=== PATIENT | male | born 1950 | race Caucasian/White ===

== ENCOUNTER 2017-02-06 20:55 | Inpatient (IN) | payer MEDICARE ==
[~2017-02-06] VITALS: Ht 162.6 cm; Wt 99.1 kg
--- NOTE | ~2017-02-06 | ECH ---
Transthoracic Echocardiography Report (TTE) Demographics Patient Name SHERLEY BARR Date of Study 02/07/2017 Patient Number [id number] Visit Number [id number] Date of 1950 Room Number 427 Gender Male Number Age 66 year(s) Referring Britta Barreto Director Workers Compensation Ana Saba [facility] Physician Physician Interpreting Yanet Moore [employer] Physician MD Supervising Ordering Yanet Moore MD/MLP Physician Nurse Stress Promotions Director Conclusions Summary Technically adequate exam. Normal LV/RV size and systolic function. The estimated left ventricular ejection fraction is 55-60%. Diastolic assessment reveals Grade I diastolic dysfunction. No significant valvular abnormalities. Procedure Type of Study TTE procedure:Echo Complete SF. Procedure Date Date: 02/07/2017 Start: 02:11 PM Technical Quality: Adequate visualization Indications:Atypical Chest Pain, Diabetes, Coronary artery disease and Elevated Troponin. Additional Indications:NSTEMI Appropriate Use Criteria: 9 Height: 64 inches Weight: 218 pounds BSA: 2.03 m Rhythm: Irregular HR: 60 bpm BP: 135/73 mmHg Allergies - No known allergies. M-Mode/2D Measurements LV Diastolic Dimension: 5.29 cm LV Systolic Dimension: 3.89 cm LV Septum Diastolic: 1.04 cm LV PW Diastolic: 0.81 cm AO Root Dimension: 2.98 cm Cardiac Output: 2.98 l/min LA Dimension: 4.05 cm Cardiac Index: 1.47 l/min*m RV Diastolic Dimension: 3.72 cm LA volume index: 29 ml/m LVOT: 1.98 cm LVOT VTI: 16.12 cm RV Base: 3.4 cm LV Stroke volume: 49.61 ml RV Mid: 2.5 cm LV Stroke volume index: 24.44 ml/m TAPSE: 2.5 cm TDI-S': 13 cm/s Doppler Measurements AV Peak Velocity: 1.8 m/s MV Peak E-Wave: 0.54 m/s AV Peak Gradient: 12.96 mmHg MV Peak A-Wave: 0.72 m/s AV Mean Gradient: 7.15 mmHg MV E/A Ratio: 0.75 LVOT Peak Velocity: 0.88 m/s MV P1/2t: 72.1 msec AV Area (Continuity):1.32 cm MV Deceleration Time: 215.5 msec MV Area (PHT): 3.05 cm PV Peak Velocity: 0.96 m/s E' Septal Velocity: 0.07 m/s PV Peak Gradient: 3.67 mmHg E' Lateral Velocity: 0.09 m/s A' Septal Velocity: 0.1 m/s A' Lateral Velocity: 0.13 m/s RA Area: 10.82 cm Findings Left Ventricle Normal left ventricle size and function. Diastolic assessment reveals Grade I diastolic dysfunction. Right Ventricle Normal right ventricle structure and function. Left Atrium Normal left atrial size. Right Atrium Normal right atrial size. IVC is not well visualized. Mitral Valve Normal mitral valve structure and function. Trivial mitral regurgitation by color Doppler. Aortic Valve The aortic valve is moderately sclerotic. No AI. Tricuspid Valve Normal tricuspid valve structure and function. Trivial tricuspid regurgitation by color Doppler. Insufficient jet to calculate pulmonary pressures. Pulmonic Valve Normal pulmonic valve structure and function. Pericardial Effusion No evidence of pericardial effusion. Miscellaneous Visualized portions of the aortic root and ascending aorta appear normal in size. Pleural Effusion No evidence of pleural effusion. Signature
--- NOTE | ~2017-02-06 | CATH ---
Cardiac Diagnostic Report Demographics Patient Name MOMO LEPE Gender Male L Date of 1950 Age 66 year(s) Patient Number [id number] Date of Study 02/07/2017 Visit Number [id number] Room Number 427 Corporate ID Ht 162.56 cm Wt 98.88 kg Accession Number [id number] BSA 2.03 m kg/m Referring Britta Silva Primary Physician Physician Mary Lou MAK Performing [facility] Secondary Physician Physician Teresa MAK Diagnostic [facility] Assisting Physician Physician Teresa MAK Interventional [facility] Physician Continuity Person Physician Teresa MAK Findings and Conclusions Diagnostic Findings and Conclusion 1. Severe 3 vessel obstructive CAD, Diffusely diseased dominant RCA with robust collaterals from left system filling distal vessel, mid LAD 80%, prox LAD 60%, and mid Cx 80% of large OM branch. 2. Patient admitted with NSTEMI/with ST depressions in leads 1, aVL. Diagnostic Recommendations 1. Transfer to [facility] for CABG, discussed with Dr. Claudio. 2. Continue therapy for NSTEMI while awaiting transfer. 3. Continue heparin drip per ACS protocol, asa, bb, statin. 4. 2D echocardiogram and carotids prior to CABG. Procedure Description The patient was brought to the diagnostic cardiac catheterization laboratory in the fasting, non-sedated state. Informed consent was obtained in the written and verbal form after the risks and benefits were explained. The patient had no further questions and agreed to proceed. The planned puncture-incision site(s) were shaved and prepped with ChloraPrep and draped in the usual sterile manner. Conscious sedation, supplemental oxygen, and pain control medications were delivered by a registered nurse under physician guidance. Surface ECG rhythm, blood pressure measurement, and pulse oximetry were monitored throughout the procedure. Arterial access. The right radial access site was infiltrated with lidocaine. The vessel was entered with the Seldinger technique. A 6F sheath was advanced into the vessel and used for catheter placement. Radial cocktail administered per protocol. Selective right coronary angiography. A FR4 catheter was advanced into the right coronary vessel ostium under fluoroscopic guidance. Contrast was injected by hand. Images were obtained in multiple projections. Selective left coronary angiography. A FL3.5 catheter was advanced into the left coronary vessel ostium under Fluoroscopic guidance. Contrast was injected by hand. Images were obtained in multiple projections. Left heart catheterization. A pigtail catheter was advanced across the aortic valve to the left ventricle under fluoroscopic guidance. Resting hemodynamics were obtained. Arterial artery hemostasis was achieved with a TR band. The patient was transferred to a regular nursing floor via cart accompanied by a nurse. The patient left the laboratory in stable condition. Diagnostic Cath Status: Urgent Procedure Procedure Type Diagnostic procedure:Angiography:, Coronary Angios /[facility] Indications: NSTEMI and Obesity. The procedure was explained in detail to the patient. Risks, complications and alternative treatments were reviewed. Written consent was obtained. Medications Reviewed with Patient prior to Procedure. Complications: No Complication. Angiographic Findings Dominance: Right Cardiac Arteries and Lesion Findings LMCA: Normal (0% Stenosis). LAD: Abnormal. Lesion on Mid LAD: 80% stenosis . Lesion on Prox LAD: 60% stenosis . Lesion on Dist LAD: 50% stenosis . LCx: Abnormal. Lesion on Mid CX: 80% stenosis . Lesion on 1st Ob Erika% stenosis . RCA: Abnormal.Collaterals to RCA from LAD Lesion on Prox RCA: 90% stenosis .The lesion was diffuse. Lesion on Dist RCA: 95% stenosis . Coronary Tree Procedure Data Procedure Date Date: 02/07/2017Start: 11:23 AMEnd: 12:15 PM Entry Locations - Percutaneous access was performed through the Right Radial artery (Primary location). A 6 Fr sheath was inserted. Hemostasis was successfully obtained using a TR band. Procedure Medications Order and Administration + + +---------+-------+ !Time !Medication !Dosage !Route ! + + +---------+-------+ !02/07/2017 11:26 AM !Versed !2 mg !I.V. ! + + +---------+-------+ !02/07/2017 11:26 AM !Fentanyl !25 mcg !I.V. ! + + +---------+-------+ !02/07/2017 11:26 AM !Sodium Chloride !10 ml !I.V. ! + + +---------+-------+ !02/07/2017 11:34 AM !Versed !1 mg !I.V. ! + + +---------+-------+ !02/07/2017 11:34 AM !Fentanyl !25 mcg !I.V. ! + + +---------+-------+ !02/07/2017 11:46 AM !Versed !1 mg !I.V. ! + + +---------+-------+ !02/07/2017 11:46 AM !Fentanyl !50 mcg !I.V. ! + + +---------+-------+ !02/07/2017 11:50 AM !Oxygen !4 l/min !NC ! + + +---------+-------+ Devices Used - ACATH 6F FR4 CATHETER 100CMwas used for:Right coronary angiography. - ACATH 6FR FL3.5 CATHETER 100CMwas used for:Left coronary angiography. - ACATH 6FR PIG 145 110CM CATHETERwas used for:LV Pressures. Contrast Material - Isovue 21388 ml Fluoroscopy Time: Diagnostic: 3:06 minutes. Total: 3:06 minutes. Fluoroscopy Dose: Diagnostic: 704 mGy. Total: 704 mGy. Estimated Blood Loss: 8 ml. Medical History Allergies - No known allergies. Risk Factors The patient risk factors include:obesity, Newly diagnoseddiabetes mellitus, last creatinine: 1.1 mg/dl, creatinine clearance: 92.39 ml/min and dyslipidemia. Admission Data Admission Date: 02/06/2017 Admission Time: 11:15 PM Insurance Payors: Medicare. Clinical Evaluation Leading to Procedure - The patient's CAD presentation was assessed as: Non-STEMI. - The patient's anginal syndrome during the past two weeks was assessed as: Class IV according to the Hand Cardiovascular Society Classification System (CCS). Anti-anginal medications were prescribed during the past two weeks. The medication is: Beta Blockers. - The patient has been in a state of heart failure within the past two weeks. - The patient's heart failure status was assessed as NYHA Class II, with CHF symptoms of DEL CIDConcepcion Evans Hemodynamics Condition: Rest O2 Consumption: Estimated: 237.66Heart Rate: 72 bpm Pressures (mmHg) +-----+ + !Site !Pressure ! +-----+ + !AO !102/60 (79) ! +-----+ + !LV !125/2 ,9 ! +-----+ + !AO !107/53 (84) ! +-----+ + !LV !125/4 ,7 ! +-----+ + Valve Gradients and Areas + +---------+---------+---------+ +---------+ + !Valve !Peak !Mean !Area !Index !Flow !Source ! + +---------+---------+---------+ +---------+ + !Aortic !18 !15 ! ! ! ! ! + +---------+---------+---------+ +---------+ + !Aortic !18 !15 ! ! ! ! ! + +---------+---------+---------+ +---------+ + Shunts Oxygen Values O2 Consumption 237.66 Signatures
--- NOTE | 2017-02-07 19:14 | ER ---
ADMIT: 02/06/2017 RM/LOC: 427 [facility] MR#: [id number] [address] [facility] [address] [place], [place] [address] SHERLEY BARR [address] [place] [address] Emergency Room Report SEX: M AGE: 66 : 1950 DATE: 02/06/2017 HISTORY OF PRESENT ILLNESS: The patient is a 66-year-old male with a past medical history prediabetic, who came to the ER with chief complaint of 1 day of upper mid chest and base of the neck pain, which radiates to the back and is exertional and happens while the patient walks or do some exertion. The patient states pain was moderate in severity and was more sharp and sometimes pressure like. The patient denies any shortness of breath. PHYSICAL EXAMINATION: GENERAL: The patient was in mild distress. VITAL SIGNS: Stable. The patient was mildly tachycardic to 105 to 107. Blood pressure systolic was 128 and diastolic was 79. O2 saturation was 93 to 95 on room air. The patient received GI cocktail, per the patient, GI cocktail significantly decreased the pain. The patient also received nitroglycerin sublingual, knowing the patient had no usage of erectile dysfunction medications in the last week. Per the patient, sublingual nitroglycerin did not change the pain that much. EKG did not show any ST or T changes or Q-waves. Chest x-ray was questionable for mediastinal widening especially on the right side at the level of T4 close to 9 cm. Troponin was elevated to 0.079. Glucose was 394, and D-dimer was also elevated to 1.56. The patient received another dose of sublingual nitroglycerin as a blood pressure systolic went 170s, which decreased the systolic blood pressure to 129, the patient later on was put on nitroglycerin paste. The patient already got aspirin, and CT angiogram of the chest, dissection protocol was negative for dissection or pulmonary emboli. Family Medicine was consulted, and the patient was admitted for chest pain, rule out acute coronary syndrome/non-STEMI. Buddy Cohen MD/ angel JOB #: [id number] CC: Ricardo Callejas MD, Attending Physician Ricardo Callejas MD, Family Physician
--- NOTE | 2017-02-19 13:06 | DS ---
ADMIT: 02/06/2017 RM/LOC: 427 [facility] MR#: [id number] [id number] [place], [place] [address] SHERLEY BARR [address] [place] [address] General Discharge Summary SEX: M AGE: 66 : 1950 ADMISSION DATE: 02/06/2017 DISCHARGE DATE: 02/09/2017 ADMISSION DIAGNOSIS: Chest pain. DISCHARGE DIAGNOSIS: Acute coronary syndrome. SECONDARY DIAGNOSES: 1. Three-vessel obstructive coronary artery disease. 2. Type 2 diabetes mellitus. 3. Hyperlipidemia. 4. Obesity. 5. Factor V Leiden, heterozygous carrier. CONSULTATIONS: 1. Cardiology. 2. Hematology. PROCEDURE: Cardiac catheterization on 02/07/2017. HISTORY OF PRESENT ILLNESS: The patient presented to the emergency room after a 12-hour history of chest pain. He reported that the 1st episode happened while lifting a 5-pound box and that the pain was substernal with radiation to bilateral clavicles without any diaphoresis, nausea, or shortness of breath. He continued to have intermittent chest pain throughout the day, especially with walking and then presented to the emergency room after an unrelenting episode after eating a cheeseburger. His pain resolved in the ER with Maalox and nitroglycerin, and he was found to have a troponin of 0.079. On chest x- ray, his aortic arch was noted to be enlarged and so a CTA of the chest was completed which is negative for dissection or for pulmonary emboli. HOSPITAL COURSE: The patient was hemodynamically stable throughout his hospital course without any cardiac arrhythmias. His troponin peaked at 0.415, and he was treated with IV heparin. He had a cardiac catheterization on 02/07/2017 and was found to have severe three-vessel obstructive coronary artery disease. He had 1 episode of recurrent chest pain while inpatient, which resolved with 1 dose of nitroglycerin. Cholesterol was checked while he was inpatient and the total cholesterol of 227, HDL of 42, LDL of 123, and triglycerides of 310. He also had an A1c measured which was 9.7, giving him a new diagnosis of type 2 diabetes. Echocardiogram was completed with a left ventricular ejection fraction of 55%. The patient was maximized on medical therapy with the addition of a beta lucy, JARRED inhibitor, statin, and hypoglycemic agents. Arrangements were made to transfer to [facility] to undergo CABG later that week. Hematology was also consulted during the hospitalization as the patient had a family history of factor V Leiden deficiency and is always suspected that he is heterozygous, but was never tested. This testing was completed to further risk stratify the patient, especially with the major surgery planned for later that week. Results returned after the hospitalization, which was positive for the ADMIT: 02/06/2017 RM/LOC: 427 [facility] MR#: [id number] [address] [address] SHERLEY BARR [address] [place] [address] General Discharge Summary SEX: M AGE: 66 : 1950 heterozygous factor V Leiden as expected. The patient was transferred to [facility] on 02/09/2017. DISCHARGE MEDICATIONS: 1. Amaryl 2 mg p.o. daily. 2. Aspirin 81 mg p.o. daily. 3. Crestor 20 mg p.o. at bedtime. 4. Glucophage 500 mg p.o. b.i.d. 5. Lopressor 25 mg p.o. b.i.d. 6. Zestril 5 mg p.o. daily. 7. Low-dose sliding scale insulin. 8. Heparin drip was continued. FOLLOWUP: The patient is to have a followup appointment with Cardiology in 4 weeks after discharge as well as with his PCP 4 weeks after discharge. He is also to follow up with Hematology and its commands to further diagnose heterozygous factor V Leiden. Dinah Sherwood MD Resident / Ronald Cespedes MD / angel JOB #: [id number] CC: Ricardo Callejas MD, Attending Physician Ricardo Callejas MD, Family Physician
--- NOTE | 2017-02-28 07:52 | CO ---
ADMIT: 02/06/2017 RM/LOC: 427 [facility] MR#: [id number] [address] [address] SHERLEY BARR [address] [place] [address] Consultation SEX: M AGE: 66 : 1950 DATE OF CONSULTATION: 02/07/2017 ATTENDING PHYSICIAN: Ricardo Callejas MD CONSULTING PHYSICIAN: Mio Morin MD REASON FOR CONSULTATION: Family history of factor V Leiden. HISTORY OF PRESENT ILLNESS: The patient is a 66-year-old male who has been admitted to the hospital for chest pain and underwent a cardiac catheterization today, showing severe 3-vessel obstructive coronary artery disease, and therefore, needs transferred to [place] to undergo bypass surgery which is currently planned for 02/09/2017. He is on heparin therapy currently for his fys-MB-pbyutlrup ME. He did have a CT scan of the chest to rule out a pulmonary embolism which was negative. I am being asked to see the patient because he has a family history of factor V Leiden in his daughter, who is heterozygous as well as in a brother and some other family members. There have been blood clots in the family. His daughter was tested simply because his brother was found to have the mutation, and she was going to be going through a . She was managed with preventive anticoagulation which was effective, and she I do not believe has ever had a blood clot. The patient himself has never had a history of venous thrombosis. He has had several surgeries in the past as well, which did not result in postoperative clots. He is interested in having testing performed. He, otherwise, has been feeling well prior to this chest pain admission. He has not suffered weight loss, night sweats, significant fevers, fatigue, bowel changes, or any other systemic complaints of concern. PAST MEDICAL HISTORY: Diabetes, obesity, coronary artery disease. PAST SURGICAL HISTORY: Hip surgery. SOCIAL HISTORY: The patient is . 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 He does stay fairly active. He does have a remote history of smoking. FAMILY HISTORY: His father has had heart disease. He is not aware of any malignancies in the family. He does have factor V Leiden as noted above. ALLERGIES: HIS CHART WAS REVIEWED. MEDICATIONS: His chart was reviewed. REVIEW OF SYSTEMS: See HPI. Otherwise, a complete review of systems was obtained and was negative. PHYSICAL EXAMINATION: VITAL SIGNS: Temperature 97, pulse 64, respirations 15, and blood pressure 135/73. GENERAL: The patient is in no acute distress and provides me good history. ADMIT: 02/06/2017 RM/LOC: 427 [facility] MR#: [id number] [address] [address] SHERLEY BARR [address] [place] [address] Consultation SEX: M AGE: 66 : 1950 He is alert and oriented. HEENT: Mucous membranes are moist. No oral lesions are seen. Extraocular muscles were intact. Pupils are reactive and symmetrical. NECK: Without adenopathy or JVD. HEART: Regular rate and rhythm without murmur. LUNGS: Clear to auscultation bilaterally without any crackles or wheezes. ABDOMEN: Soft, nontender, and nondistended with positive bowel sounds throughout. No organomegaly is appreciated. EXTREMITIES: No edema, rashes, lesions, or adenopathy is seen. LABORATORY DATA: Labs are reviewed. CT scan was reviewed. Echo was reviewed. IMPRESSION: 1. Family history of factor V Leiden. 2. Coronary artery disease, in need of intervention. RECOMMENDATIONS: I talked with the patient and his family at length about his family history of factor V Leiden and the high likelihood that he himself is at least heterozygous for the factor V Leiden mutation. Given his family history and his daughter's mutation status, it is very likely that the patient himself is also heterozygous for the mutation. It is an outside possibility that their daughter obtained the mutation from her mother, but her mother's family history is not suggestive of a clotting disorder. I would probably recommend going ahead and checking his factor V Leiden mutation status, just no more information about his future risk of clotting. I would treat him as if he has a mild clotting disorder. I would imagine his postoperative management after this upcoming surgery would be to covering him with anticoagulation preventatively, and he will also be on several anti-platelet drugs presumably as well. I do not think I would do anything overly aggressive in terms of anticoagulation given that he has had no prior history of thrombosis himself. I will see him back in a few weeks once he has recovered from his surgery, and we have his factor V Leiden results to discuss this further with him and the family. I appreciate this consultation. Mio Morin MD/ angel JOB #: [id number] CC: Ricardo Callejas MD, Attending Physician Ricardo Callejas MD, Family Physician
--- NOTE | 2017-03-03 15:08 | CO ---
ADMIT: 02/06/2017 RM/LOC: 427 [facility] MR#: [id number] [address] [facility] [address] [place], [place] [address] [address] [place] [address] Consultation SEX: M AGE: 66 : 1950 DATE OF CONSULTATION: 02/07/2017 ATTENDING PHYSICIAN: Ricardo Callejas CONSULTING PHYSICIAN: Nic De Paz MD REASON FOR CONSULTATION: Chest pain. HISTORY OF PRESENT ILLNESS: This is a 66-year-old male with newly diagnosed type 2 diabetes mellitus, hyperlipidemia, and obesity, who was admitted with chest pain. The patient reports that yesterday morning, he was lifting a box that was approximately 5 pounds and began experiencing mid upper sternal chest pressure that radiated to the bilateral shoulders and around his neck. He had no associated nausea, vomiting, shortness of breath, or diaphoresis. The pain resolved after resting for several minutes. Throughout the day, the chest pressure would return with any sort of activity, especially with walking, but would resolve with rest. Then, during the evening, he was sitting down eating a cheeseburger and the pain returned and so, he came to the Emergency Department. The pain resolved with Maalox and two doses of nitroglycerin that were given in the emergency room. Initial troponin was 0.079, and his EKG showed a normal sinus rhythm. His vital signs were stable upon arrival. His troponins were then trended throughout the night and peaked to 0.360. His EKG was repeated and significant for slight ST elevation in leads II, III, and aVF, as well as T-wave inversion in leads I, aVL, and V2. The patient reports that he had some slight chest pressure around 6:00 a.m. this morning while resting, but that did resolve on its own. PAST MEDICAL HISTORY: 1. Obesity. 2. Recent diagnosis of type 2 diabetes mellitus with a hemoglobin A1c of 9.7. 3. Hyperlipidemia. 4. Factor V Leiden. PAST SURGICAL HISTORY: 1. Left hip arthroplasty. 2. Cervical fusion approximately 20 years ago. MEDICATIONS: Since being admitted, he was started on: 1. Aspirin 81 mg daily. 2. Lopressor 25 mg p.o. b.i.d. 3. Crestor 20 mg p.o. daily. 4. Metformin 500 mg b.i.d. ALLERGIES: NONE. SOCIAL HISTORY: The patient admits to chewing tobacco use since his early teens up until about 4 years ago. No smoking tobacco use. Denies alcohol or illegal drug use. He does live at home. He also reports that since his hip ADMIT: 02/06/2017 RM/LOC: 427 [facility] MR#: [id number] [address] [id number] [address] [place] [address] Consultation SEX: M AGE: 66 : 1950 replacement four years ago, he had been walking 3-4 miles daily without any chest pain. FAMILY HISTORY: Significant for a dad with an [place] at age 70, also family history of factor V Leiden. REVIEW OF SYSTEMS: A 10-point review of systems was reviewed and negative other than that stated above in the HPI. PHYSICAL EXAMINATION: VITAL SIGNS: Blood pressure 135/73, pulse 64, respirations 15, temp 97.6, saturating 93% on 2 L of O2. GENERAL: He is alert and oriented x3. No acute distress. HEENT: Mucous membranes are moist. Nose, clear. Atraumatic. No jugular venous distention. HEART: Shows regular rate and rhythm. No murmur. Chest pain is not reproducible with palpation. LUNGS: Clear. ABDOMEN: Soft, nontender, nondistended. Positive bowel sounds. EXTREMITIES: No edema. LABORATORY AND X-RAY DATA: Sodium 136, potassium 4.6, creatinine 1.1. Glucose 323. LDH was 264. White count 7.2, hemoglobin 15.4, platelets 209. D-dimer was 1.56. Hemoglobin A1c 9.7. CK initial was 136, then 130, then 134; MB was 2.0 initially, then 2.4, then 2.7. Initial troponin was 0.079 and 0.270, then 0.360. Total cholesterol 227, triglycerides 310, LDL 123, HDL 42. CT of the chest was negative for pulmonary embolism, but did show a 3 cm infrarenal abdominal aortic aneurysm. ASSESSMENT AND PLAN: 1. Non-ST segment elevation myocardial infarction. The patient was started on heparin drip. He is also on a statin and a beta-lucy. We will ADMIT: 02/06/2017 RM/LOC: 427 [facility] MR#: [id number] [address] [id number] [facility] [address] [place] [address] Consultation SEX: M AGE: 66 : 1950 plan to add lisinopril tomorrow as well as aspirin. I will schedule an echo for today. After reviewing the EKG changes as well as the trending of the troponins, it was decided that it would be best to go to the cardiac cath lab manager to evaluate for any blockages. The risks and benefits of having a heart catheterization were discussed with the patient and family, and they agreed to go ahead and go forth with that this morning. 2. Diabetes mellitus type 2. He has been started on metformin by his primary, and we will get a diabetic education consult as well. 3. Hyperlipidemia, to start him on Crestor. 4. Obesity. 5. A 3 cm infrarenal abdominal aortic aneurysm. 6. Factor V Leiden. Steph Stewart DO Resident / Nic De Paz MD / angel JOB #: [id number] CC: Ricardo Callejas, Attending Physician Ricardo Callejas, Family Physician
--- NOTE | 2017-03-23 15:58 | HP ---
ADMIT: 02/06/2017 RM/LOC: 427 [facility] MR#: [id number] [address] [facility] [address] [place], [place] [address] [address] [place] [address] History and Physical SEX: M AGE: 66 : 1950 DATE OF SERVICE: CHIEF COMPLAINT: Chest pain. HISTORY OF PRESENT ILLNESS: The patient presented to the ER after developing chest pain today. He reports the first episode with lifting a light box less than 5 pounds around 10 a.m. this morning. He felt the pain deep to his jugular notch with radiation to bilateral clavicles and the pain resolved immediately with rest. He reports he had a few more episodes throughout the day whenever he tried to do any physical activity, but then eventually presented to the emergency room when it was present without any activity after eating a cheeseburger. He denies ability to elicit the pain with palpation of his chest. He denies ever having the sensation before. He denies any shortness of breath, diaphoresis, or nausea during the episodes. He has known coronary artery disease though has not been seen by a physician in over 4 years. He was a previous tobacco user, who quit 4 years ago. He has no family history of premature heart disease only with the father, who had an MN in his 70s. He denies any recent fevers, chills, or other illnesses. He denies any fluid retention. In the ER, he was found to be hemodynamically stable and said the chest pain nearly resolved with Maalox and then completely resolved after 2 doses of nitroglycerin. Since resolution, the pain has not recurred in the few hours since he has been here. PAST MEDICAL HISTORY: "Pre-diabetes" and obesity. PAST SURGICAL HISTORY: Left hip arthroplasty. FAMILY HISTORY: Father with an MN in his 70s. Mom with valve replacement. SOCIAL HISTORY: The patient is . His is at the bedside. 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 He walks 3 to 4 miles daily and has never had any chest discomfort with that activity. He previously used tobacco, quit 4 years ago. Denies any regular alcohol use, herbs, supplements, or illicit drugs. MEDICATIONS: 1. 81 mg aspirin. 2. Flonase as needed. ALLERGIES: NO KNOWN MEDICAL ALLERGIES. REVIEW OF SYSTEMS: A 10-point review of system was negative except as noted in the HPI. PHYSICAL EXAMINATION: VITAL SIGNS: 70, 132/61, 19, 95%, afebrile. GENERAL: Alert and oriented in no acute distress. The patient appears comfortable. HEENT: Head is normocephalic and atraumatic. Pupils are equal, round, and reactive to light. Extraocular muscles are intact. Sclerae are nonicteric. ADMIT: 02/06/2017 RM/LOC: 427 [facility] MR#: [id number] [address] [place] [id number] [facility] [place] [address] History and Physical SEX: M AGE: 66 : 1950 Mucous membranes are moist. NECK: Supple. Thyroid is nonpalpable. Trachea is midline. No JVD appreciated. HEART: Regular rate and rhythm without murmur, rub, or gallop. LUNGS: Clear to auscultation bilaterally with normal work of breathing on 2 L per nasal cannula. ABDOMEN: Soft, obese, nontender to palpation with bowel sounds present. EXTREMITIES: Without cyanosis, clubbing, or edema. SKIN: Intact without any appreciable ulcers. NEURO: Cranial nerves II through XII are grossly intact with 5/5 strength in all 4 extremities, and sensation intact. PSYCH: Normal mood and affect. LABORATORY DATA: WBC 6.6, hemoglobin 16.4, platelets 224. Creatinine 1.2, CK 136, MB 2.0, troponin 0.079. Chest x-ray with widened mediastinum prompting CT of the chest, which was normal. EKG is normal sinus rhythm with no ST or T- wave changes. ASSESSMENT AND PLAN: 1. Atypical chest pain. 2. Elevated troponin. 3. Hyperglycemia. 4. Obesity. PLAN: Plan is to admit patient to the hospital for observation and to trend the enzymes every 6 hours. The patient may benefit from a stress test in the morning if enzymes and EKG remain unchanged. We will check hemoglobin A1c and lipid panel with morning labs. The patient is a full code. Plan was discussed with the patient and his , who are agreeable. Dinah Sherwood MD Resident / Raúl Vincent MD / angel JOB #: [id number] CC: Ricardo Callejas, Attending Physician Ricardo Callejas, Family Physician
== END 2017-02-09 07:34 | disposition short-term general hospital (02) | DRG 281 ==
LOC: ER 20:55 → 4PCU 23:15
PROVIDERS: ADMIT Family Medicine
DX: I21.4 Non-ST elevation (NSTEMI) myocardial infarction (principal); D68.51 Activated protein C resistance; E11.9 Type 2 diabetes mellitus without complications; E66.9 Obesity, unspecified; R79.89 Other specified abnormal findings of blood chemistry; I71.4 Abdominal aortic aneurysm, without rupture; I25.10 Atherosclerotic heart disease of native coronary artery without angina pectoris; E78.5 Hyperlipidemia, unspecified; Z98.1 Arthrodesis status; Z79.82 Long term (current) use of aspirin; Z82.49 Family history of ischemic heart disease and other diseases of the circulatory system; Z96.642 Presence of left artificial hip joint; Z87.891 Personal history of nicotine dependence; Z68.37 Body mass index [BMI] 37.0-37.9, adult

== ENCOUNTER 2017-02-15 20:08 | Emergency (ER) | payer MEDICARE ==
--- NOTE | 2017-02-16 03:28 | ER ---
ADMIT: 02/15/2017 RM/LOC: ER [facility] MR#: [id number] [address] [facility] [address] [place], [place] [address] SHERLEY BARR [address] [place] [address] Emergency Room Report SEX: M AGE: 66 : 1950 DATE: 02/15/2017 The patient is a 66-year-old male, diabetic, status post recent coronary artery bypass on 02/10/2017, discharged yesterday, was sitting in his recliner when he had a coughing paroxysm followed by near syncope. transported to department. The patient denies any hemoptysis, fevers, chills, or prior episode of mucus plugging. The patient does have factor V Leiden. Currently, on Xarelto for 1 month prior to being transitioned to clopidogrel in addition to his current aspirin therapy. EKG showed sinus rhythm without ST-T or Q- wave change. Chest x-ray showed postoperative left pleural effusions. CTA chest, negative. Hemoglobin 11.8, lactic 1.7, glucose 169, creatinine 1.3, troponin 0.217. The patient received fluid bolus, Zofran, Dilaudid with improvement of pain. No orthostatic blood pressure changes, road tested well. Recommend incentive spirometry, ambulating regularly, to avoid further mucus plugging. Notified Dr. Cordon, who agrees. Follow up as scheduled. Ross Cunha MD/ angel JOB #: [id number] CC: Ross Cunha MD, Attending Physician Ricardo Callejas MD, Family Physician MD Jona Botello MD
== END 2017-02-15 22:55 | disposition home or self-care (01) ==
LOC: ER 20:08
DX: T17.990A Other foreign object in respiratory tract, part unspecified in causing asphyxiation, initial encounter (principal); I10 Essential (primary) hypertension; E11.9 Type 2 diabetes mellitus without complications; Z79.899 Other long term (current) drug therapy; Z79.01 Long term (current) use of anticoagulants

== ENCOUNTER → 2017-04-02 | Outpatient (CLI) | payer MEDICARE | END | disposition home or self-care (01) | LOC: EDT 14:05 | DX: E11.9 Type 2 diabetes mellitus without complications (principal); Z71.3 Dietary counseling and surveillance ==